=== PATIENT | female | born 1985 | race African-American/Black ===

== ENCOUNTER 2017-04-15 10:27 | Emergency (ER) | payer OTHER ==
[2017-04-15 10:42] VITALS: BMI 26.6
[2017-04-15 11:30] LABS: URINE APPEARANCE CLEAR; URINE BILIRUBIN NEGATIVE (NEGATIVE); URINE BLOOD NEGATIVE (NEGATIVE); URINE COLOR YELLOW; URINE GLUCOSE (UA) NEGATIVE (NEGATIVE); URINE KETONE NEGATIVE (NEGATIVE); URINE LEUK ESTERASE NEGATIVE (NEGATIVE); URINE NITRITE NEGATIVE (NEGATIVE); URINE PROTEIN NEGATIVE (NEGATIVE); URINE UROBILINOGEN NEGATIVE E.U./dl (0.2-1.0)
[2017-04-15] MEDS ORDERED: IBUPROFEN 400 MG TABLET (FP) PO ONE ×2 (11:39→11:49)
--- NOTE | 2017-04-15 11:47 | PDOC ---
History of Present Illness - General History Source: Patient - History of Present Illness Associated Symptoms: reports: headaches. denies: chest pain, fever/chills, nausea/vomiting, shortness of breath, weakness <Veronica Lindquist - Last Filed: 04/15/17 12:45> <Mally Whiting - Last Filed: 04/15/17 15:42> - General Chief Complaint: Pain Stated Complaint: ABD PAIN, HEADACHES Time Seen by Provider: 04/15/17 10:43 Past History - Past Medical History Asthma: Yes - Immunization History Immunization Up to Date: Yes - Psycho/Social/Smoking Cessation Hx Anxiety: No Suicidal Ideation: No Smoking History: Never smoked Have you smoked in the past 12 months: No Information on smoking cessation initiated: No Hx Alcohol Use: No Drug/Substance Use Hx: No Substance Use Type: None <Veronica Lindquist - Last Filed: 04/15/17 12:45> <Mally Whiting - Last Filed: 04/15/17 15:42> - Past Medical History Allergies/Adverse Reactions: Allergies Allergy/AdvReac Type Severity Reaction Status Date / Time No Known Allergies Allergy Verified 04/15/17 10:39 Home Medications: Ambulatory Orders NK [No Known Home Medication] 04/15/17 Review of Systems - Review of Systems Constitutional: No: Chills, Fever, Unintentional Wgt. Loss ABD/GI: No: Diarrhea, Nausea, Vomiting : No: Dysuria, Flank Pain, Hematuria Musculoskeletal: No: Back Pain <Veronica Lindquist - Last Filed: 04/15/17 12:45> *Physical Exam - Vital Signs Last Vital Signs Temp Pulse Resp BP Pulse Ox 98.1 F 79 2 L 115/76 100 04/15/17 10:39 04/15/17 10:39 04/15/17 10:39 04/15/17 10:39 04/15/17 10:39 - Physical Exam General Appearance: Yes: Appropriately Dressed. No: Apparent Distress HEENT: positive: Pale Conjunctivae Neck: positive: Supple Respiratory/Chest: positive: Lungs Clear, Normal Breath Sounds. negative: Respiratory Distress Cardiovascular: positive: Regular Rate, S1, S2 Gastrointestinal/Abdominal: positive: Soft. negative: Tender, Distended, Guarding, Rebound Extremity: positive: Normal Inspection Integumentary: positive: Dry, Warm Neurologic: positive: Fully Oriented, Alert, Normal Mood/Affect <Veronica Lindquist - Last Filed: 04/15/17 12:45> - Vital Signs Last Vital Signs Temp Pulse Resp BP Pulse Ox 98.2 F 72 18 109/89 99 04/15/17 12:59 04/15/17 12:59 04/15/17 12:59 04/15/17 12:59 04/15/17 12:59 <Mally Whiting - Last Filed: 04/15/17 15:42> ED Treatment Course - LABORATORY CBC & Chemistry Diagram: 04/15/17 11:40 04/15/17 11:38 - ADDITIONAL ORDERS Additional order review: Laboratory Results 04/15/17 11:20 Urine Color Yellow Urine Appearance Clear Urine pH 7.0 Urine Protein Negative Urine Glucose (UA) Negative Urine Ketones Negative Urine Blood Negative Urine Nitrite Negative Urine Bilirubin Negative Urine Urobilinogen Negative Ur Leukocyte Esterase Negative Urine HCG, Qual Negative <Veronica Lindquist - Last Filed: 04/15/17 12:45> - LABORATORY CBC & Chemistry Diagram: 04/15/17 11:40 04/15/17 11:38 - ADDITIONAL ORDERS Additional order review: Laboratory Results 04/15/17 04/15/17 11:38 11:20 Sodium 142 Potassium 3.8 Chloride 105 Carbon Dioxide 27 Anion Gap 10 BUN 11 Creatinine 0.8 Creat Clearance w eGFR > 60 Random Glucose 80 Calcium 9.0 Total Bilirubin 0.5 AST 20 ALT 24 Alkaline Phosphatase 67 Total Protein 6.8 Albumin 3.6 Lipase 139 Urine Color Yellow Urine Appearance Clear Urine pH 7.0 Ur Specific [place] 1.020 Urine Protein Negative Urine Glucose (UA) Negative Urine Ketones Negative Urine Blood Negative Urine Nitrite Negative Urine Bilirubin Negative Urine Urobilinogen Negative Ur Leukocyte Esterase Negative Urine HCG, Qual Negative 04/15/17 11:40 RBC 4.05 MCV 87.6 MCHC 33.5 RDW 14.8 MPV 7.8 Neutrophils % 58.0 Lymphocytes % 27.6 Monocytes % 12.4 H Eosinophils % 1.3 Basophils % 0.7 - Medications Given in the ED: ED Medications Discontinued Medications Generic Name Dose Route Start Last Admin Trade Name Freq PRN Reason Stop Dose Admin Ibuprofen 800 mg 04/15/17 11:39 04/15/17 11:54 Motrin - PO 04/15/17 11:40 800 mg ONCE ONE Administration <Mally Whiting - Last Filed: 04/15/17 15:42> Medical Decision Making - Medical Decision Making 04/15/17 11:40 Patient is a 31-year-old female history of asthma, on OCPs, presenting with abdominal pain. Patient admits to having left pelvic pain for several months that is intermittent, sharp and last for seconds to minutes. Does not usually take anything for pain and states pain usually spontaneously resolves. Denies any other symptoms. Has been evaluated by her [facility] with ultrasound and labs, which were negative per pt. States she has also been evaluated in an outside ER with no abnormal findings on workup. Here today for another assessment. Denies that symptoms have worsened. Also c/o chronic intermittent MODI in different locations. No MODI currently. Pt states she figures while she was here with her abd pain, that she would mention MODI as well. Pt currently does not have a PMD but in the process of getting one as per pt See exam Chronic pelvic pain No identifiable cause on multiple w/o previously per pt No worsening of sxs today Pt stable and well gilles w/ benign abd -pain control -basic labs -anticipate dc w/ pmd f/u Chronic MODI Asymptomatic currently Exam unremarkable -otc meds as needed -neuro referral 04/15/17 11:50 04/15/17 12:20 04/15/17 12:45 Labs wnl. Pt stable for discharge <Veronica Lindquist - Last Filed: 04/15/17 12:45> *DC/Admit/Observation/Transfer <Veronica Lindquist - Last Filed: 04/15/17 12:45> - Attestations Physician Attestion: I reviewed the case with the mid-level practitioner and agree with the mid- level practitioner's assessment, diagnosis and disposition. <Mally Whiting - Last Filed: 04/15/17 15:42> Diagnosis at time of Disposition: Chronic abdominal pain Chronic headache Qualifiers: Headache type: unspecified Intractability: not intractable Qualified Code(s): R51 - Headache - Discharge Dispostion Disposition: HOME Condition at time of disposition: Good - Referrals Referrals: Ignacio Asif MD [Primary Care Provider] - Mina Tirado MD [Staff Physician] - - Patient Instructions Printed Discharge Instructions: DI for Abdominal Pain-Adult, DI for Headache Additional Instructions: Take 600-800 mg of Motrin as needed for pain and follow-up with your PMD and neurology for further evaluation - Post Discharge Activity Work/School Note: Back to Work
[2017-04-15 11:55] LABS: BASOPHIL 0.7 % (0-2.0); EOSINOPHIL 1.3 % (0-4.5); MCH 29.4 pg (25.7-33.7); MCHC 33.5 g/dl (32.0-36.0); MEAN CELL VOLUME 87.6 fl (80-96); MEAN PLT VOLUME 7.8 fl (7.5-11.1); PLATELET COUNT 318 K/MM3 (134-434); RDW 14.8 % (11.6-15.6); WHITE BLOOD COUNT 5.6 K/mm3 (4.0-10.0)
[2017-04-15 12:26] LABS: ALBUMIN 3.6 g/dl (3.4-5.0); ANION GAP 10 (8-16); BILIRUBIN,TOTAL 0.5 mg/dL (0.2-1.0); CO2 27 mmol/L (21-32); CREATININE 0.8 mg/dL (0.55-1.02); GLUCOSE,RANDOM 80 mg/dL (74-106); SGOT/AST 20 U/L (15-37); SGPT/ALT 24 U/L (12-78); TOT PROT 6.8 g/dl (6.4-8.2)
[2017-04-15 12:27] LABS: ALK PHOS 67 U/L (45-117)
--- NOTE | 2017-04-15 12:57 | PDOC ---
*Physical Exam - Vital Signs Last Vital Signs Temp Pulse Resp BP Pulse Ox 98.1 F 79 20 115/76 100 04/15/17 10:39 04/15/17 10:39 04/15/17 10:39 04/15/17 10:39 04/15/17 10:39 ED Treatment Course - LABORATORY CBC & Chemistry Diagram: 04/15/17 11:40 04/15/17 11:38 - ADDITIONAL ORDERS Additional order review: Laboratory Results 04/15/17 04/15/17 11:38 11:20 Sodium 142 Potassium 3.8 Chloride 105 Carbon Dioxide 27 Anion Gap 10 BUN 11 Creatinine 0.8 Creat Clearance w eGFR > 60 Random Glucose 80 Calcium 9.0 Total Bilirubin 0.5 AST 20 ALT 24 Alkaline Phosphatase 67 Total Protein 6.8 Albumin 3.6 Lipase 139 Urine Color Yellow Urine Appearance Clear Urine pH 7.0 Urine Protein Negative Urine Glucose (UA) Negative Urine Ketones Negative Urine Blood Negative Urine Nitrite Negative Urine Bilirubin Negative Urine Urobilinogen Negative Ur Leukocyte Esterase Negative Urine HCG, Qual Negative 04/15/17 11:40 RBC 4.05 MCV 87.6 MCHC 33.5 RDW 14.8 MPV 7.8 Neutrophils % 58.0 Lymphocytes % 27.6 Monocytes % 12.4 H Eosinophils % 1.3 Basophils % 0.7 - Medications Given in the ED: ED Medications Discontinued Medications Generic Name Dose Route Start Last Admin Trade Name Kezia PRN Reason Stop Dose Admin Ibuprofen 800 mg 04/15/17 11:39 04/15/17 11:54 Motrin - PO 04/15/17 11:40 800 mg ONCE ONE Administration *DC/Admit/Observation/Transfer Diagnosis at time of Disposition: Chronic abdominal pain Chronic headache Qualifiers: Headache type: unspecified Intractability: not intractable Qualified Code(s): R51 - Headache - Discharge Dispostion Disposition: HOME Condition at time of disposition: Good - Referrals Referrals: Ignacio Asif MD [Primary Care Provider] - Mina Tirado MD [Staff Physician] - - Patient Instructions Printed Discharge Instructions: DI for Abdominal Pain-Adult, DI for Headache Additional Instructions: Take 600-800 mg of Motrin as needed for pain and follow-up with your PMD and neurology for further evaluation - Post Discharge Activity Work/School Note: Back to Work
[2017-04-15 13:00] VITALS: BP 109/89; PULSE 72; TEMP 98.2
== END 2017-04-15 13:00 | disposition home or self-care (01) ==
LOC: JER 10:27
DX: R10.9 Unspecified abdominal pain (principal); R51 Headache; G89.29 Other chronic pain
CPT/HCPCS: 36415; 80053; 81003; 83690; 84703; 85025; 99282-25

== ENCOUNTER 2018-11-23 13:10 | Emergency (ER) | payer OTHER ==
[2018-11-23 13:20] VITALS: BP 119/92; PULSE 66; TEMP 97.7; BMI 23.2
[2018-11-23 14:01] LABS: URINE APPEARANCE CLEAR; URINE BILIRUBIN NEGATIVE (<2.0 mg/dL); URINE COLOR LTYELLOW; URINE GLUCOSE (UA) NEGATIVE (NEGATIVE); URINE KETONE NEGATIVE (NEGATIVE); URINE LEUK ESTERASE NEGATIVE (NEGATIVE); URINE NITRITE NEGATIVE (NEGATIVE); URINE PROTEIN NEGATIVE (NEGATIVE); URINE UROBILINOGEN NEGATIVE mg/dL (0.2-1.0)
[2018-11-23 14:03] LABS: HCG,QUALITATIVE URINE Negative
--- NOTE | 2018-11-23 14:38 | PDOC ---
History of Present Illness - General Chief Complaint: Hematuria Stated Complaint: R/O KIDNEY STONES Time Seen by Provider: 11/23/18 13:23 History Source: Patient Exam Limitations: No Limitations - History of Present Illness Travel History: No Initial Comments: 11/23/18 14:00 33-year-old female with no past medical history presents to the ED for evaluation of lower abdominal pain and hematuria versus vaginal bleeding. Patient states has had intermittent lower abdominal pain for the past 3 years and denies any vaginal discharge, irregular menses, followed distention, bowel complaints, fever or chills. She states had an MRI for low back pain in August and is pending an ultrasound which was ordered by her [employer]. Patient states was told by her PCP that she may hydronephrosis or kidney stone secondary to hematuria but denies history of kidney stones or diagnosis of hydronephrosis. Timing/Duration: reports: intermittent Quality: reports: mild, cramping Abdominal Pain Onset Location: reports: suprapubic (left and mid) Pain Radiation: denies: no radiation Activities at Onset: denies: none Aggravating Factors: worse with: None Alleviating Factors: worse with: None Past History - Travel Traveled outside of the country in the last 30 days: No - Past Medical History Allergies/Adverse Reactions: Allergies Allergy/AdvReac Type Severity Reaction Status Date / Time No Known Allergies Allergy Verified 04/15/17 10:39 Home Medications: Ambulatory Orders Norgestimate-Ethinyl Estradiol [Ortho-Cyclen] 1 each PO DAILY 11/23/18 Asthma: Yes - Surgical History Cholecystectomy: No Lung Surgery: No - Immunization History Immunization Up to Date: Yes - Suicide/Smoking/Psychosocial Hx Smoking History: Never smoked Have you smoked in the past 12 months: No Information on smoking cessation initiated: No Hx Alcohol Use: No Drug/Substance Use Hx: No Substance Use Type: None Patient Lives Alone: No Review of Systems - Review of Systems Able to Perform ROS?: Yes Constitutional: No: Symptoms Reported HEENTM: No: Symptoms Reported Respiratory: No: Symptoms reported Cardiac (ROS): No: Symptoms Reported ABD/GI: Yes: Abdominal cramping. No: Nausea, Vomiting : Yes: Hematuria. No: Flank Pain Musculoskeletal: No: Symptoms Reported Integumentary: No: Symptoms Reported Neurological: No: Symptoms reported Hematologic/Lymphatic: No: Symptoms Reported *Physical Exam - Vital Signs Last Vital Signs Temp Pulse Resp BP Pulse Ox 97.7 F 66 16 119/92 100 11/23/18 13:18 11/23/18 13:18 11/23/18 13:18 11/23/18 13:18 11/23/18 13:18 - Physical Exam General Appearance: Yes: Nourished, Appropriately Dressed. No: Apparent Distress Respiratory/Chest: positive: Lungs Clear, Normal Breath Sounds. negative: Respiratory Distress, Accessory Muscle Use Cardiovascular: positive: Regular Rhythm, Regular Rate. negative: Murmur Female Pelvic Exam: positive: normal external exam. negative: discharge, vaginal bleeding Gastrointestinal/Abdominal: positive: Normal Bowel Sounds, Soft, Tenderness ( left suprapubic/ lower quadrant). negative: Distended, Guarding, Rebound Musculoskeletal: negative: CVA Tenderness Integumentary: positive: Normal Color, Warm, Moist Neurologic: positive: Motor Strength 5/5 (ambulatory) Moderate Sedation - Procedure Monitoring Vital Signs: Procedure Monitoring Vital Signs Temperature 97.7 F 11/23/18 13:18 Pulse Rate 66 11/23/18 13:18 Respiratory Rate 16 11/23/18 13:18 Blood Pressure 119/92 11/23/18 13:18 O2 Sat by Pulse Oximetry (%) 100 11/23/18 13:18 ED Treatment Course - LABORATORY CBC & Chemistry Diagram: 11/23/18 14:46 11/23/18 14:46 - ADDITIONAL ORDERS Additional order review: Laboratory Results 11/23/18 13:42 Urine Color Ltyellow Urine Appearance Clear Urine pH 6.0 Ur Specific [place] 1.013 Urine Protein Negative Urine Glucose (UA) Negative Urine Ketones Negative Urine Blood Negative Urine Nitrite Negative Urine Bilirubin Negative Urine Urobilinogen Negative Ur Leukocyte Esterase Negative Urine HCG, Qual Negative - RADIOLOGY Radiology Studies Ordered: Category Date Time Status PELVIC / BLADDER US [US] Stat Ultrasound 11/23/18 14:11 Ordered TRANSVAGINAL ULTRASOUND US [US] Stat Ultrasound 11/23/18 14:12 Ordered Medical Decision Making - Medical Decision Making 11/23/18 14:21 Complaint: Left lower quadrant pain and hematuria. Exam. Patient had left suprapubic and left lower quadrant tenderness on exam. Plan: Urinalysis urine culture urine along CBC comp and ultrasound. Based on patient's exam and then requestioning, patient states she notices blood upon wiping her vagina and unlikely from her urethra. She denied back pain and had no CVA tenderness on exam 11/23/18 14:42 Laboratory Tests 11/23/18 13:42 Ur Specific [place] 1.013 Urine Protein Negative Urine Glucose (UA) Negative Urine Ketones Negative Urine Blood Negative Urine Nitrite Negative Urine Bilirubin Negative Urine Urobilinogen Negative Ur Leukocyte Esterase Negative Urine HCG, Qual Negative 11/23/18 18:43 Ultrasound shows a normal left ovary measuring several subcentimeter follicles. A 1.4 right ovarian follicle cyst is noted. There is no evidence of ovarian torsion. There is no free intraperitoneal fluid identified. The uterus demonstrates no discrete abnormalities. Patient will be discharged home with recommendations to follow-up with her OB/ [employer]. 11/23/18 18:44 Laboratory Tests 11/23/18 11/23/18 11/23/18 13:42 14:46 14:46 WBC 6.5 Hgb 13.0 Hct 37.7 Absolute Neuts (auto) 4.7 Sodium 137 Potassium 3.9 Chloride 104 Carbon Dioxide 28 Anion Gap 5 L BUN 11 Creatinine 0.8 Creat Clearance w eGFR > 60 Random Glucose 108 H Calcium 9.0 Total Bilirubin 0.7 AST 16 ALT 19 Alkaline Phosphatase 57 Total Protein 7.5 Albumin 4.1 Urine Ketones Negative Urine Nitrite Negative Urine HCG, Qual Negative Patient at this time will be recommended to follow up with GI and her primary care physician. Patient be given a referral to [facility]. Patient otherwise recommended she drink plenty of fluids take Tylenol Motrin for discomfort. If symptoms worsen prior to fall to return to the emergency room. *DC/Admit/Observation/Transfer Diagnosis at time of Disposition: Abdominal pain - Discharge Dispostion Disposition: HOME Condition at time of disposition: Improved - Referrals Referrals: Ignacio Asif MD [Primary Care Provider] - Ari Musa MD [Staff Physician] - - Patient Instructions Printed Discharge Instructions: DI for Abdominal Pain-Adult Additional Instructions: Please follow up with referred dietary supervisor and your primary care physician. May take Tylenol Motrin only for discomfort. Return if your symptoms worsen prior to your follow-up. - Post Discharge Activity
[2018-11-23 15:15] LABS: BASO % 0.5 % (0-2.0); EOS % 0.7 % (0-4.5); HEMATOCRIT 37.7 % (32.4-45.2); LYMPH % 16.7 % (8-40); MCH 31.2 pg (25.7-33.7); MCHC 34.5 g/dl (32.0-36.0); MEAN CELL VOLUME 90.3 fl (80-96); MEAN PLT VOLUME 7.9 fl (7.5-11.1); MONO % 9.7 % (3.8-10.2); NEUT % 72.4 % (42.8-82.8); PLATELET COUNT 311 K/MM3 (134-434); RBC 4.18 M/mm3 (3.60-5.2); RDW 14.3 % (11.6-15.6); WHITE BLOOD COUNT 6.5 K/mm3 (4.0-10.0)
[2018-11-23 15:35] LABS: ALBUMIN 4.1 g/dl (3.4-5.0); ALK PHOS 57 U/L (45-117); ANION GAP 5 MMOL/L (8-16); BILIRUBIN,TOTAL 0.7 mg/dL (0.2-1); BLOOD UREA NITROGEN 11 mg/dL (7-18); CHLORIDE 104 mmol/L (98-107); CO2 28 mmol/L (21-32); CREATININE 0.8 mg/dL (0.55-1.3); GLUCOSE,RANDOM 108 mg/dL (74-106); POTASSIUM 3.9 mmol/L (3.5-5.1); SGOT/AST 16 U/L (15-37); SGPT/ALT 19 U/L (13-61); SODIUM 137 mmol/L (136-145); TOT PROT 7.5 g/dl (6.4-8.2)
== END 2018-11-23 19:09 | disposition home or self-care (01) ==
LOC: JER 13:10
DX: R10.30 Lower abdominal pain, unspecified (principal); N83.201 Unspecified ovarian cyst, right side; Z87.09 Personal history of other diseases of the respiratory system
CPT/HCPCS: 36415; 76830-TC; 76856-TC; 80053; 81003; 84703; 85025; 87086; 87186; 99281-25

== ENCOUNTER 2024-01-04 04:14 | Day surgery (SDC) | payer OTHER ==
[2023-12-29 11:13] VITALS: BMI 26.6
[2024-01-04] MEDS ORDERED: ONDANSETRON 4 MG/2 ML VIAL IVPUSH PRN (13:27)
[2024-01-04] MEDS ORDERED: oxyCODONE HCL 5 MG TABLET PO PRN (13:27)
[2024-01-04] MEDS ORDERED: PROPOFOL 20 ML ONE ×2 (13:36→14:10)
[2024-01-04] MEDS ORDERED: MIDAZOLAM HCL 2 MG/2 ML SINGLE DOSE VIAL ONE (13:36)
[2024-01-04] MEDS: LACTATED RINGERS SOLUTION 1,000 ML IV SCH (15:19)
[2024-01-04 15:50] VITALS: RESP 18; TEMP 97.8
[2024-01-04 16:23] VITALS: BP 142/86; PULSE 61
== END 2024-01-04 16:57 | disposition home or self-care (01) ==
LOC: JASU-SURG 04:14
PROVIDERS: ATTEND Urology
PROC: 0TC18ZZ Extirpation of Matter from Left Kidney, Via Natural or Artificial Opening Endoscopic (ICD-10-PCS; principal; 2024-01-04 14:00)
PROC: 0T778DZ Dilation of Left Ureter with Intraluminal Device, Via Natural or Artificial Opening Endoscopic (ICD-10-PCS; 2024-01-04 14:00)
DX: N20.0 Calculus of kidney (principal)
CPT/HCPCS: 76000-TC-FY; 81025; 94760; C1758; C1769; C2617